=== PATIENT | male | born 1985 | race Caucasian/White ===

== ENCOUNTER 2019-08-05 02:54 | Emergency (ER) | payer MEDICAID ==
[~2019-08-05] VITALS: Ht 182.9 cm; Wt 75.0 kg
[~2019-08-05 02:54] MED LIST: ALBU6.7H9 INH; CYCL-1 PO; CYCL-120 PO; IBUP-1051 PO; IBUP-1984 PO; NO HOME MEDS
[2019-08-05] MEDS ORDERED: LIDOcaine 1% 30ml preserv. free vial IJ ONE (03:15)
[2019-08-05] MEDS ORDERED: SULF1TAB49 PO (03:47)
[2019-08-05] MEDS ORDERED: CEPH-572 PO (03:47)
[2019-08-05] MEDS ORDERED: sulfamethoxazole/trimethoprim DS (800/160mg) tablet PO ONE (03:50)
[2019-08-05] MEDS ORDERED: cephalexin 250mg capsule PO ONE (03:50)
--- NOTE | 2019-08-05 04:08 | NUR ---
PT RIGHT RING FINGER SWOLLEN SAUSAGED PAINFUL . DR NATHAN AT BEDSIDE EDUCATING PT THAT IT IS IMPORTant to drain the fluid in pt finger to releve the pressure an d prevent infection . pt agreed to have finger drained
[2019-08-05 04:18] VITALS: BP 148/64
== END 2019-08-05 04:05 | disposition home or self-care (01) ==
LOC: ER 02:55
DX: L02.511 Cutaneous abscess of right hand (principal); G89.29 Other chronic pain; F32.9 Major depressive disorder, single episode, unspecified; Z98.890 Other specified postprocedural states; Z88.5 Allergy status to narcotic agent; Z79.899 Other long term (current) drug therapy
CPT/HCPCS: 26010; 99283

== ENCOUNTER 2019-10-24 07:37 | Emergency (ER) | payer MEDICAID ==
[~2019-10-24] VITALS: Ht 182.9 cm; Wt 87.8 kg
[2019-10-24 07:50] VITALS: BP 153/88
[2019-10-24] MEDS ORDERED: ondansetron 4mg rapidly disintigrating tab PO ONE (08:55)
--- NOTE | 2019-10-24 09:20 | NUR ---
MANUFACTURING JOB TITLES SWAB FOR COVID TEST PERFORMED AND SENT TO THE LAB.
== END 2019-10-24 09:28 | disposition home or self-care (01) ==
LOC: ER 07:37
DX: J02.9 Acute pharyngitis, unspecified (principal); M79.18 Myalgia, other site; Z20.828 Contact with and (suspected) exposure to other viral communicable diseases; G89.29 Other chronic pain; F32.9 Major depressive disorder, single episode, unspecified; F17.200 Nicotine dependence, unspecified, uncomplicated; Z98.890 Other specified postprocedural states; Z88.5 Allergy status to narcotic agent; Z79.899 Other long term (current) drug therapy
CPT/HCPCS: 36415; 87081; 87880; 99283; C9803

== ENCOUNTER 2020-03-30 18:53 | Emergency (ER) | payer MEDICAID ==
[~2020-03-30] VITALS: Ht 182.9 cm; Wt 82.0 kg
[2020-03-30 18:56] VITALS: BP 176/86
[2020-03-30] MEDS ORDERED: DIVA125T9 PO (19:22)
== END 2020-03-30 19:31 | disposition home or self-care (01) ==
LOC: ER 18:53
DX: F11.10 Opioid abuse, uncomplicated (principal); H57.12 Ocular pain, left eye; R55 Syncope and collapse; Y04.8XXA Assault by other bodily force, initial encounter; Y93.89 Activity, other specified; Y92.89 Other specified places as the place of occurrence of the external cause; Y99.8 Other external cause status; Z00.01 Encounter for general adult medical examination with abnormal findings
CPT/HCPCS: 99281

== ENCOUNTER 2020-04-15 08:10 | Emergency (ER) | payer MEDICAID ==
[~2020-04-15] VITALS: Ht 182.9 cm; Wt 79.4 kg
[~2020-04-15 08:10] MED LIST changes: +DIVA125T9 PO
[2020-04-15 08:30] VITALS: BP 149/90
== END 2020-04-15 09:24 | disposition home or self-care (01) ==
LOC: ER 08:10
DX: F11.99 Opioid use, unspecified with unspecified opioid-induced disorder (principal); F12.90 Cannabis use, unspecified, uncomplicated; G89.29 Other chronic pain; Z86.69 Personal history of other diseases of the nervous system and sense organs; F32.9 Major depressive disorder, single episode, unspecified; Z98.890 Other specified postprocedural states; Z88.5 Allergy status to narcotic agent; Z79.899 Other long term (current) drug therapy
CPT/HCPCS: 99282

== ENCOUNTER 2020-07-07 07:05 | Emergency (ER) | payer MEDICAID ==
[~2020-07-07] VITALS: Ht 182.9 cm; Wt 79.5 kg
[2020-07-07] MEDS ORDERED: SULF1TAB49 PO (07:36)
[2020-07-07] MEDS ORDERED: CEPH-585 PO (07:36)
[2020-07-07] MEDS ORDERED: LIDOcaine 1% W/epiNEPHrine 1:200,000 10ml vial IJ ONE (07:40)
[2020-07-07] MEDS ORDERED: ceFAZolin 1gm IM kit IM ONE (07:55)
[2020-07-07] MEDS ORDERED: sulfamethoxazole/trimethoprim DS (800/160mg) tablet PO ONE (07:55)
[2020-07-07 08:27] VITALS: BP 123/88
== END 2020-07-07 09:29 | disposition home or self-care (01) ==
LOC: ER 07:05
DX: L02.416 Cutaneous abscess of left lower limb (principal); L03.116 Cellulitis of left lower limb; G89.29 Other chronic pain; F32.9 Major depressive disorder, single episode, unspecified; F17.200 Nicotine dependence, unspecified, uncomplicated; F12.90 Cannabis use, unspecified, uncomplicated; F15.90 Other stimulant use, unspecified, uncomplicated; Z86.69 Personal history of other diseases of the nervous system and sense organs; Z98.890 Other specified postprocedural states; Z88.5 Allergy status to narcotic agent; Z79.2 Long term (current) use of antibiotics; Z79.899 Other long term (current) drug therapy
CPT/HCPCS: 10060; 87070; 96372; 99284; J0690; 87077; 87186; 99283

== ENCOUNTER 2022-06-01 21:36 | Emergency (ER) | payer MEDICAID ==
[~2022-06-01] VITALS: Ht 182.9 cm; Wt 79.5 kg
[~2022-06-01 21:36] MED LIST changes: +ALBU6.7H14 INH; -ALBU6.7H9 INH
[2022-06-01 21:51] VITALS: BP 136/94
[2022-06-02] MEDS ORDERED: SULF1TAB49 PO (00:55)
[2022-06-02] MEDS ORDERED: bacitracin 15gm ointment TP ONE (00:55)
[2022-06-02] MEDS ORDERED: sulfamethoxazole/trimethoprim DS (800/160mg) tablet PO ONE (00:55)
[2022-06-02] MEDS ORDERED: ondansetron 4mg rapidly disintigrating tab PO ONE (00:55)
[2022-06-02] MEDS ORDERED: acetaminophen 325mg tablet PO ONE (01:05)
[2022-06-02] MEDS ORDERED: ibuprofen tablet 400 MG TABLET PO ONE (01:05)
== END 2022-06-02 01:29 | disposition home or self-care (01) ==
LOC: ER 21:38
DX: S60.321A Blister (nonthermal) of right thumb, initial encounter (principal); G89.29 Other chronic pain; M54.59 Other low back pain; F32.A Depression, unspecified; Z88.5 Allergy status to narcotic agent; Z79.899 Other long term (current) drug therapy; Z79.1 Long term (current) use of non-steroidal anti-inflammatories (NSAID); Z79.2 Long term (current) use of antibiotics; X58.XXXA Exposure to other specified factors, initial encounter; Y93.89 Activity, other specified; Y92.89 Other specified places as the place of occurrence of the external cause; Y99.8 Other external cause status
CPT/HCPCS: 26010; 73140; 99284

== ENCOUNTER 2023-01-09 08:24 | Emergency (ER) | payer MEDICAID ==
[~2023-01-09] VITALS: Ht 182.9 cm; Wt 81.8 kg
--- NOTE | 2023-01-09 08:36 | NUR ---
Dr Ly at bedside to I&D abscess to wrist.
[2023-01-09 08:49] VITALS: BP 130/86; PULSE 64; RESP 18; TEMP 96.8; O2SAT 100
[2023-01-09] MEDS ORDERED: SULF1TAB49 PO (08:50)
== END 2023-01-09 09:04 | disposition home or self-care (01) ==
LOC: ER 08:25
DX: L02.414 Cutaneous abscess of left upper limb (principal); F12.90 Cannabis use, unspecified, uncomplicated; F15.90 Other stimulant use, unspecified, uncomplicated; Z88.5 Allergy status to narcotic agent; Z79.899 Other long term (current) drug therapy
CPT/HCPCS: 10060; 99283; A6449